=== PATIENT | female | born 1990 | race Caucasian/White ===

== ENCOUNTER 2016-11-17 18:23 | Emergency (ER) | payer MEDICARE, MEDICAID ==
--- NOTE | ~2016-11-17 | ER ---
[facility]GE[facility] 26 Y [address] ROOM: [place] [id number] LOCATION: [facility] ADMIT DATE: 11/17/2016 ER/Outpatient Report DISCHARGE DATE: 11/17/2016 FAMILY PHYSICIAN: Anatoly Dill MD ATTENDING PHYSICIAN: Matt Apodaca CHIEF COMPLAINT: Evaluation after sexual intercourse. TIME OF THE PATIENT ARRIVAL: 1823 hours. TIME OF THE PATIENT EVALUATION: 1840 hours. HISTORY OF PRESENT ILLNESS: This is a 26-year-old female who presents to the ER with her caregivers. The patient is mentally handicapped and lives in the home that is supposed to care for her for 24 hours. The patient snuck out around 4 o'clock in the morning and once the caregivers noticed that she was gone, they notified the police department. There were several text messages today between her and her boyfriend about having sexual intercourse. The patient initially states it was consensual and then tells us that it was not consensual. Her caregiver states that she returned back to the [facility] around 11 o'clock this morning. That she has no abdominal pain, no vaginal pain, no fevers, and no recent illness. The patient's caregiver states that they want her checked for STDs and and any signs of trauma. ALLERGIES: NO KNOWN ALLERGIES. MEDICATIONS: Please see medication list and nurse's notes. PAST MEDICAL HISTORY: 1. Bipolar affective disorder. 2. Insomnia. 3. Seasonal allergies. 4. She has moderate intellectual disability. SOCIAL HISTORY: Denies smoking, drug, or alcohol use. REVIEW OF SYSTEMS: All systems were reviewed and were negative with the exception of those PAT[facility] AGE: 26 Y [address] ROOM: [place], [place] [address] LOCATION: [facility] ADMIT DATE: 11/17/2016 ER/Outpatient Report DISCHARGE DATE: 11/17/2016 FAMILY PHYSICIAN: Anatoly Dill MD ATTENDING PHYSICIAN: Matt Apodaca discussed in the HPI. PHYSICAL EXAMINATION: GENERAL: Alert, calm, well-developed female, in no acute distress. The patient is pleasant and in a good mood during examination. HEENT. Head: Normocephalic. Eyes: Pupils are equal and reactive to light. Does display moist mucous membranes. LUNGS: Clear to auscultation bilaterally. HEART: Regular rate and rhythm. ABDOMEN: Obese, it is nontender, she has good bowel sounds throughout, no masses are palpated. : Exam was done. I did not visualize any bruising, cuts, and scrapes to the vaginal labia or vaginal vault. She has no active bleeding. Her cervix, the os is closed. There is no drainage or active bleeding from the area. EXTREMITIES: No clubbing, cyanosis, or edema. She has full range of motion of all limbs. LABORATORY DATA: CBC: Urinalysis was negative for any infection. Urine hCG was negative. Gonorrhea and chlamydia from cervical swabs were not detected. Wet prep, few white blood cells, yeast not observed, clue cells not observed, sperm not observed, and Trichomonas vaginalis not observed. IMPRESSION: Evaluation after unprotected sexual intercourse. ASSESSMENT AND PLAN: We did notify the [place] [employer] and they did verify that it was a consensual intercourse because she was text message during her boyfriend about doing this today. Caregivers state that they do feel comfortable with her going home. I advised that they would need to monitor symptoms for the next couple of weeks and have her followup with her primary care physician if anything changes. The patient and the patient's caregivers understand and agrees with care. ROBLES PIEDRA PA-C FOR MD JOAO DEXTER/feng /[id number] d: t: 11/23/16 1239, OUTPATIENT REPORT
[2016-11-17 19:57] LABS: BILIRUBIN URINE NEGATIVE (NEGATIVE); BLOOD URINE NEGATIVE /UL (NEGATIVE); COLOR URINE YELLOW (YELLOW); GLUCOSE URINE NEGATIVE (NEGATIVE); KETONE URINE NEGATIVE (NEGATIVE); LEUKOCYTES URINE 100 /UL (NEGATIVE); NITRITE URINE NEGATIVE (NEGATIVE); PROTEIN URINE 30 mg/dL (NEGATIVE); TURBIDITY URINE 1+ (CLEAR); UROBILINOGEN URINE 4 mg/dL (NORMAL)
[2016-11-17 20:20] LABS: MUCUS URINE 2+ (NEGATIVE)
[2016-11-17 20:21] LABS: AMORPHOUS URINE 2+ (NEGATIVE)
[2016-11-17 20:22] LABS: RBC URINE 0-2 #/HPF (NEGATIVE)
[2016-11-17 20:55] LABS: BACTERIA URINE MODERATE (NEGATIVE)
== END 2016-11-17 21:30 | disposition disaster alternative care site (69) ==
LOC: GMED 18:23
PROVIDERS: Emergency Medicine
DX: Z11.3 Encounter for screening for infections with a predominantly sexual mode of transmission (principal); Z72.51 High risk heterosexual behavior; F31.9 Bipolar disorder, unspecified; G47.00 Insomnia, unspecified; F79 Unspecified intellectual disabilities